=== PATIENT | female | born 1945 | race Two or more races ===

== ENCOUNTER 2021-04-09 21:27 | Emergency (ER) | payer OTHER ==
[~2021-04-09] VITALS: Ht 167.6 cm; Wt 56.7 kg
[2021-04-09 21:48] VITALS: BP 114/68
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
--- NOTE | 2021-04-09 22:14 | NUR ---
Patient discharged to home in stable condition. Written and verbal after care instructions given. Patient verbalizes understanding of instruction. PT ambulatory with a steady gait
== END 2021-04-09 22:19 | disposition home or self-care (01) ==
LOC: ER 21:29
DX: F10.229 Alcohol dependence with intoxication, unspecified (principal); Z60.2 Problems related to living alone; Y90.9 Presence of alcohol in blood, level not specified